=== PATIENT | male | born 1960 | race Caucasian/White ===

== ENCOUNTER 2017-08-06 09:21 | Inpatient (IN) | payer BC ==
[~2017-08-06] VITALS: Ht 175.3 cm; Wt 93.0 kg
[2017-08-13 08:33] LABS: INR 0.9 (0.8-3.0); PROTHROMBIN TIME 10.9 SECONDS (9.7-12.8)
[2017-08-13 08:36] LABS: PARTIAL THROMBOPLASTIN TIME 32.2 SECONDS (26.0-37.0)
[2017-08-14] VITALS (12 sets, daily range): BP systolic 102–146; BP diastolic 62–85; PULSE 71–84; TEMP 97.9–98.6
[2017-08-14 08:03] LABS: PROTHROMBIN TIME 11.9 SECONDS (9.7-12.8)
[2017-08-14 08:12] LABS: PARTIAL THROMBOPLASTIN TIME 32.1 SECONDS (26.0-37.0)
[2017-08-14] MEDS ORDERED: PRINZIDE 25 MG-1 TAB PO (08:25)
[2017-08-14 15:53] LABS: HEMATOCRIT 50.6 % (42.0-52.0); HEMOGLOBIN 17.6 g/dl (13.5-18.0)
[2017-08-15 01:39] VITALS: BP 111/69; PULSE 72; TEMP 97.8
[2017-08-15 05:26] VITALS: BP 122/75; PULSE 83; TEMP 98.2
[2017-08-15 06:19] LABS: MEAN CELL VOLUME 90 fl (80.0-100.0); MEAN CORPUSCULAR HEMOGLOBIN 31 pg (27.0-31.0); MEAN CORPUSCULAR HGB CONC 35 g/dl (33.0-37.0); MEAN PLATELET VOLUME 10.3 fl (7.4-10.4); PLATELET COUNT 202 K/mm3 (130-400); RED BLOOD COUNT 4.11 M/mm3 (4.20-5.60)
[2017-08-15 06:26] LABS: HEMOGLOBIN 12.8 g/dl (13.5-18.0); WHITE BLOOD COUNT 23.4 K/mm3 (4.8-10.8)
[2017-08-15 06:31] LABS: CALCIUM 8.5 mg/dL (8.4-10.2); CREATININE, serum 1.09 mg/dL (0.66-1.25); POTASSIUM 4.3 mmol/L (3.4-5.0)
[2017-08-15 09:07] VITALS: BP 130/78; PULSE 68; TEMP 98.4
[2017-08-15 14:58] VITALS: BP 114/70; PULSE 67; TEMP 98.4
[2017-08-15 18:20] VITALS: BP 108/55; PULSE 79; TEMP 98.4
[2017-08-15 21:44] VITALS: BP 108/69; PULSE 74; TEMP 98.4
[2017-08-16 01:18] VITALS: BP 118/62; PULSE 70; TEMP 97
[2017-08-16 05:51] VITALS: BP 127/80; PULSE 65; TEMP 97.1
[2017-08-16 06:40] LABS: MEAN CELL VOLUME 90 fl (80.0-100.0); MEAN CORPUSCULAR HEMOGLOBIN 31 pg (27.0-31.0); MEAN CORPUSCULAR HGB CONC 35 g/dl (33.0-37.0); MEAN PLATELET VOLUME 10.7 fl (7.4-10.4); PLATELET COUNT 190 K/mm3 (130-400); RED BLOOD COUNT 3.84 M/mm3 (4.20-5.60)
[2017-08-16 06:44] LABS: HEMATOCRIT 34.6 % (42.0-52.0); WHITE BLOOD COUNT 20.1 K/mm3 (4.8-10.8)
[2017-08-16 09:22] VITALS: BP 123/68; PULSE 72; TEMP 98.5
[2017-08-16 13:48] VITALS: BP 100/51; PULSE 74; TEMP 98.5
[2017-08-16 17:59] VITALS: BP 128/86; PULSE 69; TEMP 98.9
[2017-08-16 21:57] VITALS: BP 110/73; PULSE 65; TEMP 98.5
[2017-08-17 05:30] VITALS: BP 126/72; PULSE 57; TEMP 98.4
[2017-08-17 09:31] VITALS: BP 116/61; PULSE 70; TEMP 98.1
== END 2017-08-17 11:20 | disposition home or self-care (01) | DRG 708 ==
LOC: SURG 08-14 07:09 → INPTSU 08-14 07:09 → SURG 08-14 09:30
PROVIDERS: Urology
PROC: 0VT00ZZ Resection of Prostate, Open Approach (ICD-10-PCS; principal; 2017-08-14 09:30)
DX: C61 Malignant neoplasm of prostate (principal); I10 Essential (primary) hypertension
CPT/HCPCS: A9284; J0690; J1885; J2250; J2405; J2704; J2710; J3010; J3480; J7030; J7120